=== PATIENT | female | born 1950 | race Caucasian/White ===

== ENCOUNTER 2018-04-09 23:52 | Emergency (ER) | payer MEDICARE, OTHER ==
[~2018-04-09] VITALS: Ht 172.7 cm; Wt 104.3 kg
[2018-04-09 23:52] VITALS: BP_SYST 148
--- NOTE | 2018-04-09 23:52 | NUR ---
Pt BIB ALS, placed to ER bed 01, to equipment monitor phototypesetting. Pt c/o rapid heart rate with SOB, progressively worsening since 1999. Rythm per equipment monitor phototypesetting A-Fib with RVR with rate 150. Pt denies c/o C/P, non-diaphoretic, -N/V. Dr. Guzman called to bedside.
--- NOTE | 2018-04-09 23:53 | NUR ---
Pt awake alert oriented x 4. clear speech. Pt was brought in via BLS complain of rapid heart rate with SOB, progressively worsening since 1999. Pt heart rate was in the 140's. afibilrile. Pt attached to monitor and vital signs obtained.
--- NOTE | 2018-04-09 23:55 | NUR ---
ER Dr. Guzman at bedside examining patient.
--- NOTE | 2018-04-09 23:56 | NUR ---
Cardizem x 2, Asprin by mouth and IV fluid administered per MD. Second 12 lead EKG was obtained.
[2018-04-10] MEDS ORDERED: NACL 0.9% 1,000 ML IV ONE
[2018-04-10] MEDS ORDERED: DILTIAZEM HCL 25 MG/5 ML VIAL ONE (00:09)
[2018-04-10] MEDS ORDERED: DILTIAZEM HCL 25 MG/5 ML VIAL IVP ONE ×2 (00:15)
[2018-04-10] MEDS ORDERED: ASPIRIN 81 MG TAB.CHEW PO ONE (00:30)
[2018-04-10] MEDS ORDERED: ASPIRIN 81 MG TAB.CHEW ONE (00:34)
[2018-04-10 00:37] LABS: ANION GAP 13 (5-15); BASOPHILS # (AUTO) 0.1 K/uL (0.0-0.2); BASOPHILS % (AUTO) 0.9 % (0.0-2.0); CALCIUM 9.2 mg/dL (8.4-11.0); CHLORIDE 106 mmol/L (98-107); CREATININE 0.66 mg/dL (0.55-1.30); EOSINOPHILS # (AUTO) 0.1 K/uL (0.0-0.4); EOSINOPHILS % (AUTO) 0.8 % (0.0-4.0); GLUCOSE 161 mg/dL (70-99); HEMATOCRIT 40.1 % (36-48); HEMOGLOBIN 13.1 g/dL (12.0-16.0); LYMPHOCYTES % (AUTO) 17.4 % (20.5-51.5); MEAN CORPUSCULAR HEMOGLOBIN 27 pg (27-31); MEAN CORPUSCULAR HGB CONC 33 % (32-36); MEAN CORPUSCULAR VOLUME 82 fL (79.0-98.0); MONOCYTES # (AUTO) 0.7 K/uL (0.0-1.0); MONOCYTES % (AUTO) 6.1 % (1.7-9.3); NEUTROPHILS # (AUTO) 8.3 K/uL (1.8-7.7); NEUTROPHILS % (AUTO) 74.8 % (40.0-70.0); PLATELET COUNT (AUTO) 249 K/uL (130-430); RED BLOOD CELL COUNT(AUTO) 4.87 MIL/uL (4.2-6.2); RED CELL DISTRIBUTION WIDTH 12.7 % (9.0-15.0); SODIUM SERUM 145 mmol/L (136-145); UREA NITROGEN, BLOOD 17 mg/dL (8-21); WHITE BLOOD COUNT (AUTO) 11.2 K/uL (4.8-10.8)
[2018-04-10 00:47] LABS: GFR AFRICAN AMERICAN 114 mL/min (>90)
[2018-04-10 00:51] LABS: ALANINE AMINOTRANSFERASE 73 U/L (12-78); ALBUMIN 3.4 g/dL (3.4-4.8); ASPARTATE AMINOTRANSFERASE 60 U/L (10-37); THYROID STIMULATING HORMONE 2.31 uIu/mL (0.36-3.74); TOTAL BILIRUBIN 0.5 mg/dL (0.0-1.0)
--- NOTE | 2018-04-10 01:10 | NUR ---
B/P 148/101, P 116. Pt denies c/o C/P, improvement in respirations noted. Dr. Guzman notified of V/S.
[2018-04-10] MEDS ORDERED: POTASSIUM CHLORIDE 20 MEQ TAB.PRT.SR PO ONE (01:15)
--- NOTE | 2018-04-10 01:30 | NUR ---
Assisted pt to the bedside commode. Comfort needs met
--- NOTE | 2018-04-10 01:57 | NUR ---
# 20 gauge angiocath placed to right AC. Use of asceptic technique. Opsite placed over site. Blood return noted. Blood for lab drawn from site. Flushed with 10 cc of normal saline. No evidence of infiltration noted. Patient tolerated well.
[2018-04-10] MEDS ORDERED: DILTIAZEM HCL 125 MG/25 ML VIAL IV ONE (02:44)
[2018-04-10] MEDS ORDERED: DILTIAZEM HCL 125 MG in D5W 100 ML IV ONE (02:45)
--- NOTE | 2018-04-10 02:55 | NUR ---
Cardizem 125mg/100ml D5W drip initiated at 5mg/hr. Blood pressure 151/96, heart rate 135. report given to Iván MONTESINOS to continue care.
--- NOTE | 2018-04-10 03:13 | NUR ---
B/P 159/107, P 126. Cardizem drip titrated to 10 mg/hr. Pt denies c/o C/P, improvement in respirations. No needs verbalized at this time.
[2018-04-10] MEDS ORDERED: ENOXAPARIN SODIUM 100 MG/ML SYRINGE SUBCUT ONE (03:15)
--- NOTE | 2018-04-10 03:25 | NUR ---
B/P 171/112, P 133. Denies c/o C/P. Dr. Guzman notified of V/S. Instructed to increase Cardiazem to 15 mg/hr. Orders carried out.
--- NOTE | 2018-04-10 03:38 | NUR ---
B/P 119/74, P 120. Cardizem 15 mg/hr continues to infuse to patent PIV RAC with no s/s infiltration to site. Pt c/o mild back pain from lying on stretcher. No needs verbalized at this time. Dr. Guzman updated on V/S.
--- NOTE | 2018-04-10 03:38 | NUR ---
Note femione in EDM - 04/10/18 at 0356 by ELEAZAR B/P 119/74, P 120. Cardizem 15 mg/hr continues to infuse to patent PIV LAC with no s/s infiltration to site. Pt c/o mild back pain from lying on stretcher. No needs verbalized at this time. Dr. Guzman updated on V/S.
--- NOTE | 2018-04-10 03:41 | NUR ---
Pt is resting quietly in bed, no acute distress noted at this time. Will continue to monitor patient.
--- NOTE | 2018-04-10 03:49 | NUR ---
B/P 156/110, P 111. Pt denies c/o C/P or SOB. Dr. Guzman notified, no new orders.
--- NOTE | 2018-04-10 04:06 | NUR ---
Report given to Bennett at [facility]. They are excpecting patient
--- NOTE | 2018-04-10 04:13 | NUR ---
B/P 167/101, P 100. Denies c/o C/P or SOB, no needs verbalized at this time. Cardizem drip continues to infuse at 15 mg/hr to patent PIV RAC, no s/s infiltration. Dr. Guzman updated on V/S. No new orders.
--- NOTE | 2018-04-10 05:11 | NUR ---
B/P 135/67, P 102. Denies c/o C/P or SOB, no needs verbalized at this time. Cardizem drip continues to infuse at 15 mg/hr to patent PIV RAC, no s/s infiltration. No new orders at this time
--- NOTE | 2018-04-10 05:44 | NUR ---
[facility] arrived for patient pickup. Report given to RN pt transferred safely to ambulance [facility] for transport.
--- NOTE | 2018-04-10 05:44 | NUR ---
Patient to be transferred to [facility] ER. Is being transferred due to insurance. Receiving facility has accepting physician and available space. ER physician has signed transfer form. Patient or responsible libertarian has agreed to transfer and signed form. Patient belongings inventoried and will be sent with patient. Copy of nursing notes, lab reports, EKG, Physicians Orders and X-rays to be sent with patient. Report called to Bennett MONTESINOS at receiving facility. Receiving physician is Dr. Vazquez. [facility] ambulance service has been called for transfer. ETA is 25 mins.
[2018-04-10 05:47] VITALS: BP_SYST 140
--- NOTE | 2018-04-10 10:08 | NUR ---
Was given report from radiology, Dr Loja is aware and pt was transferred to [facility]
== END 2018-04-10 05:47 | disposition short-term general hospital (02) ==
LOC: SED 23:52
DX: I48.91 Unspecified atrial fibrillation (principal); I10 Essential (primary) hypertension; Z90.49 Acquired absence of other specified parts of digestive tract; Z90.89 Acquired absence of other organs
CPT/HCPCS: 36415; 71045; 80053; 83880; 84443; 84484; 85025; 93005 ×2; 96365; 96366; 96372; 96376; 99285; J1650; J3490 ×2